=== PATIENT | male | born 1990 | race Caucasian/White ===

== ENCOUNTER 2020-06-27 19:21 | Emergency (ER) | payer OTHER ==
[~2020-06-27] VITALS: Ht 180.3 cm; Wt 88.5 kg
[2020-06-27] MEDS ORDERED: LAMICTAL25 M1 PO (19:47)
[2020-06-27] MEDS ORDERED: EFFEXOR XR150 MG PO (19:47)
--- NOTE | 2020-06-28 13:18 | EKG ---
[facility] [address] [facility] [place], [place] [address] Signed Normal sinus rhythm Normal ECG No previous ECGs available Confirmed by SHAKA SALAZAR DO ([id number]) on 06/28/2020 1:18:29 PM Electronically Signed By: SHAKA SALAZAR DO 06/28/20 1318 PATIENT NAME: STACY SOLORZANO Electrocardiogram DATE OF : 88 PHYSICIAN: SHAKA SALAZAR DO REPORT #: [id number] REPORT IS CONFIDENTIAL AND NOT TO BE RELEASED WITHOUT AUTHORIZATION
== END 2020-06-27 21:30 | disposition home or self-care (01) ==
LOC: ED 19:21
DX: F10.129 Alcohol abuse with intoxication, unspecified (principal); Y90.8 Blood alcohol level of 240 mg/100 ml or more; F17.200 Nicotine dependence, unspecified, uncomplicated; Z88.2 Allergy status to sulfonamides; Z88.1 Allergy status to other antibiotic agents; Z79.899 Other long term (current) drug therapy
CPT/HCPCS: 51701; 80053; 80176; 81001; 84443; 85025; 93005; 93010; 99284-25

== ENCOUNTER 2021-03-26 09:01 | Emergency (ER) | payer OTHER ==
[~2021-03-26] VITALS: Ht 180.3 cm; Wt 91.6 kg
[~2021-03-26 09:01] MED LIST: EFFEXOR XR150 MG PO; LAMICTAL25 M1 PO
[2021-03-26] MEDS ORDERED: LAMICTAL200 MG PO (09:33)
[2021-03-26] MEDS ORDERED: MINIPRESS1 MG PO (09:34)
[2021-03-26] MEDS ORDERED: HYDROXYZINE HCL50 MG PO (09:34)
[2021-03-26] MEDS ORDERED: MINIPRESS2 MG PO (09:35)
== END 2021-03-26 11:09 | disposition home or self-care (01) ==
LOC: ED 09:01
DX: S51.812A Laceration without foreign body of left forearm, initial encounter (principal); S61.512A Laceration without foreign body of left wrist, initial encounter; X78.8XXA Intentional self-harm by other sharp object, initial encounter; F17.200 Nicotine dependence, unspecified, uncomplicated; Z88.1 Allergy status to other antibiotic agents; Z88.2 Allergy status to sulfonamides; Z79.899 Other long term (current) drug therapy
CPT/HCPCS: 99284